=== PATIENT | male | born 1980 | race Caucasian/White ===

== ENCOUNTER 2017-11-15 09:06 | Emergency (ER) | payer BC ==
[~2017-11-15] VITALS: Ht 185.4 cm; Wt 100.0 kg
[2017-11-15] MEDS ORDERED: TORADOL PO (09:29)
[2017-11-15 09:46] VITALS: BP 139/89
== END 2017-11-15 09:46 | disposition home or self-care (01) | DRG 563 ==
LOC: ED 09:06
DX: M23.8X2 Other internal derangements of left knee (principal)

== ENCOUNTER 2022-03-31 06:31 | Emergency (ER) | payer SELFPAY ==
[2022-03-31] VITALS (9 sets, daily range): BP systolic 111–171; BP diastolic 64–115
[~2022-03-31] VITALS: Ht 185.4 cm; Wt 118.0 kg
[~2022-03-31 06:31] MED LIST: TORADOL PO
[2022-03-31 07:02] LABS: URINE BILIRUBIN - DIPSTICK NEGATIVE (NEGATIVE); URINE BLOOD DIPSTICK NEGATIVE (NEGATIVE); URINE COLOR YELLOW; URINE GLUCOSE - DIPSTICK NEGATIVE (NEGATIVE); URINE KETONE NEGATIVE (NEGATIVE); URINE LEUK ESTERASE NEGATIVE (NEGATIVE); URINE NITRITE - DIPSTICK NEGATIVE (Negative); URINE PH 5.5 (4.5-8.0); URINE PROTEIN - DIPSTICK NEGATIVE (NEG-TRACE); URINE SPECIFIC GRAVITY >=1.030; URINE UROBILINOGEN - DIPSTICK 0.2 E.U./dL (0.2)
[2022-03-31 07:09] LABS: BASO% 0.3 % (0-3); HEMATOCRIT 49.4 % (39.0-50.0); HEMOGLOBIN 16.8 g/dl (14.0-18.0); IMMATURE GRANULOCYTES 0.6 % (0.0-5.0); LYMPH% 28.7 % (15-41); MEAN CELL VOLUME 87.7 fL CALC (80.0-100.0); MEAN CORPUSCULAR HGB 29.8 pG CALC (26.0-32.0); MONO% 9.1 % (2-13); NEUT# 4.11 thou/uL (1.82-7.42); NEUT% 59.3 % (42-76); RED BLOOD COUNT 5.63 mill/uL (4.70-6.10); RED CELL DISTRI WIDTH 12.7 % (11.5-15.5)
[2022-03-31 07:15] LABS: ALBUMIN 4.9 g/dL (3.2-5.0); ALKALINE PHOSPHATASE 83 u/l (38-126); ANION GAP 12 (6-22 (CALC)); BILIRUBIN, TOTAL 0.5 mg/dL (0.2-1.3); BUN 11 mg/dL (9-20); BUN/CREATININE RATIO 14 (12-20 (CALC)); CARBON DIOXIDE 26 mmol/l (22-30); CHLORIDE 107 mmol/l (95-108); CREATININE 0.8 mg/dL (0.7-1.3); GFR FOR AFR.AMER. > 60 ML/MIN (>=60 (CALC)); GFR OTHER RACES > 60 ML/MIN (>=60 (CALC)); LIPASE 94 u/l (23-300); POTASSIUM 4.1 mmol/l (3.5-5.1); SGOT/AST 36 u/l (17-59); SODIUM 141 mmol/l (137-146); TOTAL PROTEIN 8.1 g/dL (6.3-8.2)
[2022-03-31] MEDS ORDERED: ZOFRAN4 MG/TAB PO (08:15)
== END 2022-03-31 08:30 | disposition home or self-care (01) | DRG 392 ==
LOC: ED 06:31
PROVIDERS: Family Medicine
DX: R19.7 Diarrhea, unspecified (principal); R10.84 Generalized abdominal pain

== ENCOUNTER 2023-10-05 15:48 | Emergency (ER) | payer SELFPAY ==
[~2023-10-05] VITALS: Ht 185.4 cm; Wt 120.0 kg
[~2023-10-05 15:48] MED LIST changes: +ZOFRAN4 MG/TAB PO
[2023-10-05] MEDS ORDERED: KETOROLAC TROMETHAMINE 30 MG/ML SDV IM ONE (16:00)
[2023-10-05] MEDS ORDERED: MORPHINE SULFATE 4 MG/ML VIAL IM ONE (16:00)
[2023-10-05] MEDS ORDERED: ONDANSETRON 4 MG/TAB ODT PO ONE (16:00)
[2023-10-05] MEDS ORDERED: FLEXERIL5 M1 PO (17:40)
[2023-10-05] MEDS ORDERED: PREDNISONE50 MG PO (17:40)
[2023-10-05] MEDS ORDERED: NAPROXEN500 MG PO (17:40)
[2023-10-05] MEDS ORDERED: predniSONE 20 MG/TAB PO ONE (17:45)
[2023-10-05 17:52] VITALS: BP 139/75
== END 2023-10-05 17:53 | disposition home or self-care (01) | DRG 552 ==
LOC: ED 15:48
DX: M54.50 Low back pain, unspecified (principal); M25.552 Pain in left hip